=== PATIENT | female | born 1975 | race Caucasian/White ===

== ENCOUNTER 2017-04-01 15:23 | Inpatient (IN) | payer SELFPAY ==
[2017-04-01 17:30] VITALS: BMI 36.8
[2017-04-01] MEDS ORDERED: Oxytocin 30 units/LR 500ML 30 U/500 ML BAG IV SCH (17:30)
[2017-04-01] MEDS ORDERED: Penicillin G Potassium 5 MU in Sodium Chloride 0.9% 50 ML IVPB ONE (18:11)
--- NOTE | 2017-04-01 18:12 | OBHP ---
Datetime: 04/01/2017 18:07 IP Adm Impression: Term, intrauterine ; Active labor IP Admit Plan: Admit to unit Admit Comment, IP Provider: Patient is a 41-year-old 3 para 2 estimated due date 03/29/2017. Patient was visiting from each operative has no records state she had care in [place] and [facility] approximately [facility] visits, patient has no documentation of her visits and presents to labor an d delivery complaining of uterine contractions of mild to moderate intensity and leaking fluid. Patie nt reports good movement no complications. Past medical history none Past surgical history none No known drug allergies Social history denies alcohol tobacco use Review of systems patient denies headache chest pain shortness of breath palpitations nausea vomit ing diarrhea heat or cold intolerances bruisability Vital signs stable afebrile Physical exam see notes Intrauterine at 40+4 weeks Active labor, adequate pelvis, vertex presentation, estimated weight 7-1/2-8 pounds Patient has no records We'll admit for delivery. Plan of care discussed with patient and she agrees Pelvic Type - PN: Adequate Extremities - PN: Normal Abdomen - PN: Normal Back - PN: Normal Breast - PN: Not Done Lungs - PN: Normal Heart - PN: Normal Thyroid - PN: Normal Neurologic - PN: Normal HEENT - PN: Normal General - PN: Normal FHR - Baseline A Provider: 145 Pool Provider: Negative Vital Signs Provider: Reviewed IP Chief Complaint: Uterine contractions; Maternal discomfort NICHD Variability Prov Fetus A: Moderate 6-25bpm NICHD Accel Fetus A IP Provider: 10X10 FHR Category Provider Fetus A: Category I NICHD Decel Fetus A IP Provider: None Dilatation, Provider: 5 Effacement, Provider: 90 Station, Provider: -2 Genitourinary Exam: Normal DTRs - PN: Normal
[2017-04-01] MEDS: Lactated Ringer's 1,000 ML IV SCH ×2 (18:30→20:15)
[2017-04-01 18:35] LABS: BASO % 0.3 % (0.0-2.0); EOS # 0.1 K/uL (0.0-0.7); EOS % 0.8 % (0.0-4.0); HEMOGLOBIN 13.6 g/dL (12.0-16.0); LYMPH # 2.2 K/uL (1.0-4.3); LYMPH % 20.9 % (20.0-40.0); MEAN CELL VOLUME 88.6 fl (81.0-99.0); MEAN CORPUSCULAR HEMOGLOBIN 29.6 pg (27.0-31.0); MEAN CORPUSCULAR HGB CONC 33.4 g/dL (33.0-37.0); MONO # 0.7 K/uL (0.0-0.8); NEUT # 7.3 K/uL (1.8-7.0); NRBC % 0.2 % (0.0-0.0); RBC 4.59 Mil/uL (3.80-5.20); RED CELL DISTRIBUTION WIDTH 15.2 % (11.5-14.5); WHITE BLOOD COUNT 10.4 K/uL (4.8-10.8)
[2017-04-01 18:45] LABS: ALB/GLOB RATIO 1.1 (1.0-2.1); ALBUMIN 3.7 g/dL (3.5-5.0); ALT/SGPT 33 U/L (9-52); AST/SGOT 28 U/L (14-36); BILIRUBIN,DIRECT 0.3 mg/ml (0.0-0.4); BLOOD UREA NITROGEN 10 mg/dl (7-17); CALCIUM 10.4 mg/dL (8.4-10.2); GFR AFRICAN-AMERICAN > 60; GFR NON-AFRICAN AMERICAN > 60; INR 0.9 (0.9-1.2); PARTIAL THROMBOPLASTIN TIME 24.9 Seconds (25.6-37.1); PROTHROMBIN TIME 9.9 Seconds (9.8-13.1); URIC ACID 4.9 mg/Dl (2.2-7.5)
[2017-04-01] MEDS ORDERED: Fentanyl/Bupivacaine HCl 250 ML EPI ONE (18:55)
[2017-04-01] MEDS ORDERED: Lactated Ringer's 1,000 ML IV SCH ×2 (19:15)
--- NOTE | 2017-04-01 21:21 | OBDS ---
MATERNAL INFORMATION Delivery Anesthesia: Epidural Provider Comments: Delivered live baby boy at 2051 the patient was bulb suctioned on the perineum an d transferred to the maternal chest. The cord was clamped and cut and 3 vessels noted cord blood was obtained and sent to the lab. Placenta was removed manually at 2057 intact. The estimated blood loss was 150 mL. A first-degree laceration was repaired with 2-0 repeat. The mother tolerated the procedur e well the baby went to the well baby nursery with Apgars of 8 and 9 weighing 3720 g LABOR SUMMARY EDC: 03/29/2017 00:00 No. Babies in Womb: 1 Attempted: No Labor Anesthesia: Epidural LABOR INFORMATION Reason for Induction: Not Applicable Onset of Labor: 04/01/2017 12:00 Oxytocin: N/A Group B Beta Strep: Not Done Steroids Given: None Reason Steroids Not Administered: Not Applicable MEMBRANES Membranes Rupture Method: Artificial Rupture of Membranes: 04/01/2017 06:20 Amniotic Fluid Color: Clear Amniotic Fluid Amount: Scant VAGINAL DELIVERY Episiotomy: None Laceration Extension: First Degree Laceration Type: Vaginal Laceration Repair: Yes Sponge Count Correct: Yes Sharps Count Correct: Yes BABY A INFORMATION Born in Route : No : N/A PRESENTATION/POSITION BABY A Presentation: Cephalic
[2017-04-01] MEDS ORDERED: Benzocaine/Menthol SPRAY TOP PRN (21:42)
[2017-04-01] MEDS ORDERED: Oxycodone/Acetaminophen 5/325 mg Tab PO PRN (21:42)
[2017-04-02] MEDS ORDERED: Oxycodone/Acetaminophen 5/325 mg Tab PO PRN (00:03)
[2017-04-02] MEDS ORDERED: Oxytocin 30 UNITS in Sodium Chloride 0.9% 500 ML IV SCH (00:03)
[2017-04-02] MEDS: Benzocaine/Menthol SPRAY TOP PRN (04:43)
[2017-04-02 06:58] LABS: BASO % 0.4 % (0.0-2.0); EOS # 0.1 K/uL (0.0-0.7); EOS % 0.5 % (0.0-4.0); HEMOGLOBIN 12.3 g/dL (12.0-16.0); LYMPH # 2.1 K/uL (1.0-4.3); LYMPH % 17.8 % (20.0-40.0); MEAN CELL VOLUME 88.5 fl (81.0-99.0); MEAN CORPUSCULAR HEMOGLOBIN 30.3 pg (27.0-31.0); MEAN CORPUSCULAR HGB CONC 34.3 g/dL (33.0-37.0); MEAN PLATELET VOLUME 8.7 fl (7.2-11.7); MONO # 0.8 K/uL (0.0-0.8); MONO % 6.6 % (0.0-10.0); NEUT % 74.7 % (50.0-75.0); RBC 4.07 Mil/uL (3.80-5.20); RED CELL DISTRIBUTION WIDTH 14.9 % (11.5-14.5)
[2017-04-02] MEDS ORDERED: Influenza Vaccine 18yr & older 0.5 ML/45 MCG SYR IM ONE (14:00)
[2017-04-02 17:03] LABS: HEPATITIS B SURFACE AG NEGATIVE (NEGATIVE)
[2017-04-03] MEDS: Benzocaine/Menthol SPRAY TOP PRN (09:13)
[2017-04-03] MEDS ORDERED: Measles, Mumps, and Rubella 0.5 ML VIAL SC ONE (11:45)
--- NOTE | 2017-04-03 11:45 | OBDCSUM ---
Datetime: 04/03/2017 06:43 Discharged to, Provider: Home Follow up at, Provider: PCP Disch Instr Activity: Normal activity Disch Instr Diet: Regular Discharge Instructions, Provider: Routine instructions given Discharge Diagnosis, Provider: Term Delivered Discharge Time: 04/03/2017 10:00 Follow up in weeks, Provider: 6 weeks Disch Referrals: None Contraception discussed, Prov: Yes Disch Activity Restrictions: No exercising; No lifting; Minimize stair-climbing; No sexual activity; Nothing in vagina - [place], tampons, douche Discharge Comment, Provider: DOA: 04/01/2017 EGA: 40.3 weeks Diagnosis: PRisk factors: none Summary of : L_D summary: DOL: 04/01/2017 at 20:52 NB: M : 8/9 Weight: 3720 g PP summary: No serious complications during PP. Lochia= menses, mild pain, controlled with medications Rubella immune Blood type: A+ CBC pp: 12.3/36.0 Discharge Date: 04/03/2017 at 10 am Discharge Instructions: -encourage -Ibuprofen for pain PRN -Colace for constipation -Ambulate as tolerated -f/u NB visit and PP visit Discharge Diagnosis Prov Other: S/P , Clinically Stable. Contraception after Delivery: Not Planning to Use; Undecided
--- NOTE | 2017-04-03 11:46 | OBPPN ---
Datetime: 04/03/2017 06:46 PP Pain Prov: Within normal limits PP Nausea Prov: Denies PP Flatus Prov: Yes PP BM Prov: Yes PP Breasts Prov: Not Done PP Heart Prov: Normal PP Lungs Prov: Normal PP Abdomen/Uterus Prov: Normal PP Lochia Prov: Normal PP Vulva/Perineum Prov: Not Done PP CVA Tenderness Prov: Not Done PP Extremities Prov: Normal PP C/S Incision Prov: Normal PP Progress Prov: Not Applicable PP Impression Prov: Normal progression PP Plan Prov: Discharge PP Progress Note Prov: S: 41 yo s/p NVD. Pt. is seen and examined at bedside this morning. N o overnight events. Pt reports occasional abdominal pain, but well controlled with pain meds. Pt is a mbulating without any difficulties. Bottle feeding baby. Tolerating PO diet. Lochia is similar to lig ht menses in volume. Voiding freely,+ BM. Denies fever/chills, diarrhea, nausea/vomiting, chest pain, dyspnea, and dizziness. VS: stable GEN: NAD Cardio: s1s2, no m/r/g Resp: clear breath sounds b/l Abdomen: BS+, NT, Uterus is firm and at the level of the umbilicus. EXT: No edema, calves nontender NEURO/PSYCHI: AAOx3, no grossly focal deficit, preserved affect and mood. A/P: 41 yo s/p NVD. Pt remains afebrile, tolerating pain with medication, doing well on PP D 2. OOB with caution. SCDs for DVT prophylaxis, pt ambulating Ibuprofen 600mg for pain. Colace 100mg PO BID for constipation Encourage . PP CBC: 12.3/36.0 Discharge today YBecerra PGY 1 Pt was seen and reviewed with the resident and I agree with the above. IP PP Procedures: None Vital Signs Provider PP: Reviewed
[2017-04-03] MEDS ORDERED: Influenza Vaccine 18yr & older 0.5 ML/45 MCG SYR IM ONE (12:15)
[2017-04-04 11:20] VITALS: BP 110/68; PULSE 76; RESP 20; TEMP 97.1; O2SAT 99
== END 2017-04-03 15:30 | disposition home or self-care (01) | DRG 775 ==
LOC: H.EROB2 15:23 → H.L&D 17:29 → H.OB/GYN 23:40
PROVIDERS: ADMIT Obstetrics & Gynecology Gynecology; ATTEND Obstetrics & Gynecology Gynecology
PROC: 10E0XZZ Delivery of Products of Conception, External Approach (ICD-10-PCS; principal; 2017-04-01)
PROC: 4A1HXCZ Monitoring of Products of Conception, Cardiac Rate, External Approach (ICD-10-PCS; 2017-04-01)
PROC: 0HQ9XZZ Repair Perineum Skin, External Approach (ICD-10-PCS; 2017-04-01)
DX: O70.0 First degree perineal laceration during delivery (principal); K59.00 Constipation, unspecified; Z37.0 Single live birth; Z3A.40 40 weeks gestation of pregnancy

== ENCOUNTER 2017-04-04 23:33 | Emergency (ER) | payer SELFPAY ==
[2017-04-04 23:33] VITALS: BMI 36.8
[2017-04-05 00:45] VITALS: O2SAT 97
--- NOTE | 2017-04-05 02:54 | ED PDOC ---
HPI: General Adult Time Seen by Provider: 04/05/17 00:48 Chief Complaint (Nursing): Abdominal Pain History Per: Patient Additional Complaint(s): Pt. states on 04/02/2017 she gave vaginal here in [facility]. Pt. was dc'd on . States since giving she's felt bodyaches and has had worsening leg pain and swelling after being dc'd. She has been taking Tylenol at home around the clock without relief. Currently having lower back pain and pelvic pain. Also reports that she was able to take out a large piece of "placenta-like " tissue from her vagina and has had green vaginal discharge with a foul odor. Denies SOB, chest pain, fever, cough, hemoptysis, hx of DVT or PE. Past Medical History Reviewed: Historical Data, Nursing Documentation, Vital Signs Vital Signs: Last Vital Signs Temp 99.1 F 04/05/17 03:13 Pulse 111 H 04/05/17 03:13 Resp 19 04/05/17 03:13 BP 140/93 H 04/05/17 03:13 Pulse Ox 97 04/05/17 05:49 - Medical History PMH: Denies: Depression, Diabetes, HTN - Family History Family History: States: No Known Family Hx - Home Medications Home Medications: Ambulatory Orders Medication Instructions Recorded Vit No.126/Iron/Folic 1 tab PO DAILY MDD 1 tab 04/01/17 [Prenavite] Cephalexin [cephalexin] 500 mg PO Q6 #12 cap 04/05/17 - Allergies Allergies/Adverse Reactions: Allergies Allergy/AdvReac Type Severity Reaction Status Date / Time No Known Allergies Allergy Verified 04/01/17 17:29 Review of Systems ROS Statement: Except As Marked, All Systems Reviewed And Found Negative Musculoskeletal: Positive for: Leg Pain Physical Exam - Reviewed Nursing Documentation Reviewed: Yes Vital Signs Reviewed: Yes - Physical Exam Appears: Positive for: Well, Non-toxic, No Acute Distress Head Exam: Positive for: ATRAUMATIC, NORMAL INSPECTION, NORMOCEPHALIC Skin: Positive for: Normal Color, Warm. Negative for: Rash Eye Exam: Positive for: EOMI, Normal appearance, PERRL ENT: Positive for: Normal ENT Inspection Neck: Positive for: Normal, Painless ROM Cardiovascular/Chest: Positive for: Regular Rate, Rhythm Respiratory: Positive for: CNT, Normal Breath Sounds Gastrointestinal/Abdominal: Positive for: Normal Exam, Bowel Sounds, Soft. Negative for: Tenderness Back: Positive for: Normal Inspection Extremity: Positive for: Normal ROM, Calf Tenderness (b/l calf swelling) Neurologic/Psych: Positive for: Alert, Oriented. Negative for: Aphasia, Facial Droop - Laboratory Results Result Diagrams: 04/05/17 03:15 04/05/17 03:15 - ECG O2 Sat by Pulse Oximetry: 97 - Progress ED Course And Treament: Repeat BP: 112/80, HR 72 Products of conception sent to pathology by RN. Disposition - Clinical Impression Clinical Impression: UTI (urinary tract infection), care and examination - Patient ED Disposition Is Patient to be Admitted: No - Disposition Referrals: [facility] [Outside] Disposition: Routine/Home Disposition Time: 05:07 Condition: STABLE Prescriptions: Cephalexin [cephalexin] 500 mg PO Q6 #12 cap Instructions: Perineal Care (GEN), Urinary Tract Infection in Women (ED)
[2017-04-05 04:06] LABS: BASO # 0.1 K/uL (0.0-0.2); BASO % 0.9 % (0.0-2.0); EOS # 0.1 K/uL (0.0-0.7); EOS % 0.8 % (0.0-4.0); HEMOGLOBIN 11.7 g/dL (12.0-16.0); LYMPH # 1.8 K/uL (1.0-4.3); LYMPH % 15.3 % (20.0-40.0); MEAN CELL VOLUME 88.6 fl (81.0-99.0); MEAN CORPUSCULAR HEMOGLOBIN 29.3 pg (27.0-31.0); MONO # 0.6 K/uL (0.0-0.8); MONO % 5.1 % (0.0-10.0); NEUT % 77.9 % (50.0-75.0); NRBC % 0.1 % (0.0-0.0); RBC 3.99 Mil/uL (3.80-5.20); RED CELL DISTRIBUTION WIDTH 14.9 % (11.5-14.5); WHITE BLOOD COUNT 11.5 K/uL (4.8-10.8)
[2017-04-05 04:10] LABS: VENOUS BLOOD GAS BASE EXCESS -0.7 mmol/L (0.0-2.0); VENOUS BLOOD GAS PCO2 40 mmHg (40-60); VENOUS BLOOD GAS PO2 40 mm/Hg (30-55); VENOUS BLOOD PH 7.39 (7.32-7.43)
[2017-04-05 04:35] LABS: ALBUMIN 3.3 g/dL (3.5-5.0); ALT/SGPT 55 U/L (9-52); AST/SGOT 40 U/L (14-36); BLOOD UREA NITROGEN 14 mg/dl (7-17); CALCIUM 9.1 mg/dL (8.4-10.2); GFR AFRICAN-AMERICAN > 60; GFR NON-AFRICAN AMERICAN > 60
[2017-04-05 05:15] VITALS: BP 140/93; PULSE 111; RESP 19; TEMP 99.1
[2017-04-05 05:19] LABS: SQUAMOUS EPITHIAL 2 /hpf (0-5); URINE BACTERIA RARE (<OCC); URINE BILIRUBIN NEGATIVE (NEGATIVE); URINE BLOOD MODERATE (NEGATIVE); URINE CLARITY CLOUDY (Clear); URINE COLOR YELLOW (YELLOW); URINE GLUCOSE (UA) NEG (Normal); URINE LEUKOCYTE ESTERASE MOD Leu/uL (Negative); URINE NITRATE NEGATIVE (NEGATIVE); URINE PROTEIN 30 mg/dL (NEGATIVE); URINE UROBILINOGEN 0.2-1.0 mg/dL (0.2-1.0)
--- NOTE | 2017-04-05 11:35 | US ---
PROCEDURE: Bilateral lower extremity venous duplex Doppler. HISTORY: swelling COMPARISON: None available. TECHNIQUE: Bilateral common femoral, superficial femoral, popliteal and posterior tibial veins were evaluated. Flow was assessed with color Doppler, compressibility, assessment of phasic flow and augmentation response. FINDINGS: COMMON FEMORAL VEIN: Right CFV: Unremarkable. Left CFV: Unremarkable. SUPERFICIAL FEMORAL VEIN: Right SFV: Unremarkable. Left SFV: Unremarkable. POPLITEAL VEIN: Right Popliteal: Unremarkable. Left Popliteal: Unremarkable. POSTERIOR TIBIAL VEIN: Right PTV: Unremarkable. Left PTV: Unremarkable. OTHER FINDINGS: None. IMPRESSION: No evidence of deep venous thrombosis. Concordant preliminary report from [facility], 04/05/2017.
--- NOTE | 2017-04-05 11:52 | US ---
HISTORY: pain; delivered on 04/02/2017 COMPARISON: None available. TECHNIQUE: Transabdominal and transvaginal pelvic ultrasound was performed with longitudinal and transverse images submitted for interpretation. FINDINGS: UTERUS: Measures 17.7 x 8.3 x 9.6 cm. Uterus is enlarged compatible status 3 days post delivery apparently. No discrete myometrial mass is evident. ENDOMETRIUM: Measures 26.6 mm in diameter. Endometrium is grossly thickened but no hyperemia is appreciated associated on color per ultrasound. Trace gas is seen in the endocervical canal which may be related to delivery. The pattern is nonspecific. Clinical correlation and follow-up are advised including follow-up ultrasonography in 1 week. Endometriosis is not favored but is not completely excluded. CERVIX: Trace gas is seen in the endocervical canal with the cervix otherwise unremarkable. RIGHT OVARY: Not identified. No suspicious adnexal mass or fluid collection appreciable. LEFT OVARY: Not identified. No suspicious adnexal mass or fluid collection appreciable. FREE FLUID: No significant free fluid noted. OTHER FINDINGS: None. IMPRESSION: Thickened endometrial is identified of the 26.6 mm without increased color Doppler blood flow appreciable or heterogeneity. This is a nonspecific finding and is not specifically indicate endometritis, which is also not favored. Clinically correlate nevertheless as this included in the differential diagnosis. Clinically correlate further. Follow ultrasound advised transvaginally in 1 week. Concordant preliminary report from [facility], 04/05/2017.
== END 2017-04-05 06:43 | disposition home or self-care (01) ==
LOC: H.ER 23:33
DX: N39.0 Urinary tract infection, site not specified (principal); Z39.2 Encounter for routine postpartum follow-up; M79.606 Pain in leg, unspecified
CPT/HCPCS: 76830; 80053; 81003; 82803; 85025; 87040; 87086; 87804; 93970; 96372; 99283; J1885